=== PATIENT | female | born 1965 | race Caucasian/White ===

== ENCOUNTER 2016-10-28 18:24 | Emergency (ER) | payer OTHER ==
[2016-10-28] MEDS ORDERED: ASPIRIN PO STA (18:29)
[2016-10-28] MEDS ORDERED: NITROGLYCERIN SL PRN (18:29)
[2016-10-28] MEDS ORDERED: NITROGLYCERIN TOP ONE (18:40)
[2016-10-28] MEDS ORDERED: PRINIVIL PO ONE (18:40)
[2016-10-28 18:52] LABS: MANUAL DIFF NEEDED? NO
[2016-10-28 18:54] LABS: BASO% 0.5 % (0.0-0.8); EOS# 0.17 X1000 (0.0-0.7); EOS% 1.7 % (0.0-10.0); HEMATOCRIT 39.9 % (37.0-47.0); HEMOGLOBIN 13.5 g/dL (12.0-16.0); IMM GRAN# 0.02 X1000 (0.0-0.04); IMM GRAN% 0.2 % (0.0-0.5); LYMPH# 3.94 X1000 (1.2-3.4); LYMPH% 40.3 % (20.5-51.1); MCH 30.8 PG (27-31); MCHC 33.8 g/dL (33-37); MCV 91.1 FL (81-99); MONO# 0.65 X1000 (0.11-0.59); MONO% 6.7 % (1.7-9.3); MPV 10.9 FL (7.4-10.4); NEUT% 50.6 % (42.2-75.2); PLT 238 X1000 (130-400); RBC 4.38 XMIL (4.2-5.4)
--- NOTE | 2016-10-28 19:00 | PROVIDER DOCUMENTATION ---
HPI-Chest Pain - General Chief Complaint: Chest Pain Stated Complaint: CP Time Seen by Provider: 10/28/16 18:38 Source: patient Allergies/Adverse Reactions: Patient Allergies Allergy/AdvReac Type Severity Reaction Status Date / Time ibuprofen AdvReac Unknown Verified 10/28/16 19:04 Home Medications: Clonazepam [Klonopin] 1 mg PO BID 10/28/16 Hydrocodone/APAP 10 mg/325 mg [Medora-10] 1 tab PO BID 10/28/16 Nebivolol HCl [Bystolic] 10 mg PO BID 10/28/16 Oxymorphone HCl [Opana ER] 40 mg PO BID 10/28/16 Ranitidine [Zantac] 150 mg PO BID 10/28/16 - History of Present Illness-CP Nature of Presenting Problem: Pt is a 51 yof who presents to ER with CC of C/P that has been intermittent since yesterday. Pt reports that yesterday, her pain started as a sharp sensation in her LUQ and was so painful that pt reports "it took me to the ground." Pt reports that today, her C/P is more of a sore feeling in her central sternum. Pt has hx of angina and HTN. On exam, pt has severe central sternal pain on palpation. Pt reports hx of chronic pain from prior incident, and also reports that she has run out of her Klonopins, her PCP cut back her prescription due to pt taking multiple pain pills. Pt reports that she has received a prescription from her PCP, but wont be able to fill it until tomorrow. Location: reports: central Chest Pain Radiation: reports: no radiation Quality of Pain: reports: sharp, other (sore) Severity in ED: moderate Onset/Duration: other (Yesterday) Timing: still present, intermittent Context/Activities at Onset: reports: light activity Modifying Factors: worse with: exercise, palpation Associated Symptoms: denies: heartburn, nausea, shortness of breath, vomiting, weakness Nitro Today/Relief: no nitro taken today Review of Systems - Adult - REVIEW OF SYSTEMS - ADULT Constitutional: denies: chills, fever, fatique Eyes: reports: no symptoms reported Ears, Nose, Mouth & Throat: reports: no symptoms reported Cardiovascular: reports: chest pain. denies: edema, irregular heart rate, palpitations, poor circulation, syncope Respiratory: denies: dyspnea on exertion, pleurisy, shortness of breath, wheezing Gastrointestinal: reports: no symptoms reported Genitourinary: reports: no symptoms reported Musculoskeletal: reports: no symptoms reported Integumentary: reports: no symptoms reported Neurological: reports: no symptoms reported Psychiatric: reports: no symptoms reported Endocrine: reports: no symptoms reported Hematologic/Lymphatic: reports: no symptoms reported Allergic/Immunologic: reports: no symptoms reported All Other Systems: Reviewed and Negative Past History - Adult - PAST MEDICAL HISTORY-ADULT Review of Records: reports: Nursing Assessment Review, Medications Reviewed Cardiovascular: reports: angina, HTN - IMMUNIZATION STATUS Childhood Immunizations: See Nurse Assessment Flu Vaccine: See Nurse Assessment - SOCIAL HISTORY Smoking: cigarettes, less than 1 pack/day Provider spent 3-5 mins advising pt. on dangers of tobacco.: Discussed manners to quit use, and f/u contacts for add'l counseling. Physical Exam-General - PHYSICAL EXAM-ADULT Initial Vital Signs Reviewed: Yes - CONSTITUTIONAL General Appearance: appears well, alert, moderate distress - NECK Neck: non-tender, full range of motion, supple - RESPIRATORY Respiratory: lungs clear, normal breath sounds, other (Central sternum moderately tender on palpation) - CARDIOVASCULAR Cardiovascular: normal peripheral pulses, regular rate, rhythm - GASTROINTESTINAL (ABDOMEN) Abdominal Exam: normal bowel sounds, non tender, soft - LYMPHATIC Lymphatic: no adenopathy - MUSCULOSKELETAL Back Exam: no CVA tenderness, no vertebral tenderness Extremity: normal range of motion, non-tender, normal gait - SKIN Integumentary: normal color, normal turgor, warm/dry - NEUROLOGIC Neurologic: grossly normal, no motor/sensory deficits - PSYCHIATRIC Psych/Mental Status: normal thought content, normal thought process, oriented x 3, anxious Progress - PLAN OF CARE/RESULTS Progress/Plan/Lab Results: Vital Signs - 24 hr 10/28/16 18:26 Temperature 97.8 F Pulse Rate 72 Respiratory 22 Rate Blood Pressure 186/113 O2 Sat by Pulse 100 Oximetry Orders Category Date Time Status Cardiac Monitoring DIRECTED Care 10/28/16 18:29 Active Saline Loc NOW Care 10/28/16 18:29 Active CHEST-2 VIEWS [RAD] Stat Exams 10/28/16 18:29 Taken CBC WITH ELECTRONIC DIFF [HEME] Stat Lab 10/28/16 18:36 Completed CK PROFILE [SP CHEM] Stat Lab 10/28/16 18:36 Completed COMPREHENSIVE METABOLIC PANEL [CHEM] Stat Lab 10/28/16 18:36 Completed D-DIMER [CHEM] Stat Lab 10/28/16 18:36 Completed MAGNESIUM [CHEM] Stat Lab 10/28/16 18:36 Completed PRO B-NATRIURETIC PEPTIDE Stat Lab 10/28/16 18:36 Completed PROTIME WITH INR [COAG] Stat Lab 10/28/16 18:36 Completed PTT [COAG] Stat Lab 10/28/16 18:36 Completed TROPONIN T Stat Lab 10/28/16 18:36 Completed Aspirin Med 10/28/16 18:29 Discontinued 325 mg PO STAT STA Clonazepam [Klonopin] Med 10/28/16 19:08 Discontinued 1 mg PO NOW ONE Ketorolac [Toradol] Med 10/28/16 19:09 Discontinued 30 mg IV NOW ONE Ketorolac [Toradol] Med 10/28/16 19:24 Discontinued 60 mg IM NOW ONE LISINOpril [Prinivil] Med 10/28/16 18:40 Discontinued 20 mg PO NOW ONE Nitroglycerin Med 10/28/16 18:40 Discontinued 1 inch TOP NOW ONE Nitroglycerin Sl [Nitroglycerin] Med 10/28/16 18:29 Active 0.4 mg SL Q5M PRN PRN EKG [EKG] Stat Ther 10/28/16 18:29 Ordered Laboratory Tests 10/28/16 10/28/16 10/28/16 18:36 18:36 18:36 WBC 9.77 RBC 4.38 Hgb 13.5 Hct 39.9 MCV 91.1 MCH 30.8 MCHC 33.8 RDW Std Deviation 13.4 Plt Count 238 MPV 10.9 H Immature Gran % (Auto) 0.2 Neut % (Auto) 50.6 Lymph % (Auto) 40.3 [place] % (Auto) 6.7 Eos % (Auto) 1.7 Baso % (Auto) 0.5 Immature Gran # (Auto) 0.02 Neut # (Auto) 4.94 Lymph # (Auto) 3.94 H [place] # (Auto) 0.65 H Eos # (Auto) 0.17 Baso # (Auto) 0.05 PT INR PTT (Actin FS) D-Dimer 0.29 Sodium 128 L Potassium 3.5 Chloride 90 L Carbon Dioxide 21 L Anion Gap 17 BUN 6 L Creatinine 0.9 Estimated GFR/1.73 m2 > 60 BUN/Creatinine Ratio 7 Glucose 119 H Calculated Osmolality 256 Calcium 9.5 Magnesium 1.8 Total Bilirubin 0.37 AST 12 ALT 8 L Alkaline Phosphatase 71 Creatine Kinase 132 Troponin T [id number] Pept Total Protein 8.1 Albumin 4.7 Globulin 3.4 Albumin/Globulin Ratio 1.4 10/28/16 10/28/16 10/28/16 18:36 18:36 18:36 WBC RBC Hgb Hct MCV MCH MCHC RDW Std Deviation Plt Count MPV Immature Gran % (Auto) Neut % (Auto) Lymph % (Auto) [place] % (Auto) Eos % (Auto) Baso % (Auto) Immature Gran # (Auto) Neut # (Auto) Lymph # (Auto) [place] # (Auto) Eos # (Auto) Baso # (Auto) PT 11.6 INR 1.09 PTT (Actin FS) 26.7 D-Dimer Sodium Potassium Chloride Carbon Dioxide Anion Gap BUN Creatinine Estimated GFR/1.73 m2 BUN/Creatinine Ratio Glucose Calculated Osmolality Calcium Magnesium Total Bilirubin AST ALT Alkaline Phosphatase Creatine Kinase Troponin T < 0.010 [id number] Pept 194 H Total Protein Albumin Globulin Albumin/Globulin Ratio - EKG 1 Time of EKG reading by physician:: 18:31 EKG Read and Signed by:: Carlton Watt EKG Interpretation (*Must complete 3 of following elements*): Abnormal ( Nonspecific ST and T wave abnormality) Rate: 89 Rhythm: Sinus rhythm with short ID - XRAY 1 XRAY: Bilateral XRAY Study: Chest Impression: See EMR Report XRAY Interpretation: COPD changes, nothing acute per Dr. Watt Departure - Departure Time of Disposition Order: 20:04 DIAGNOSIS: Left-sided chest wall pain, Anxiety HTN (hypertension) Qualifiers: Hypertension type: unspecified secondary hypertension Qualified Code(s): I15.9 - Secondary hypertension, unspecified Disposition: HOME 01 Certified Medical Emergency: Emergent Condition: Stable Additional Instructions: Follow up with Dr. Keating (Microfilm Machine Operator) as soon as possible. Continue home medications ED Follow Up Instructions: You have been treated by a care provider in the Emergency Department. These instructions are being provided to you so you can have an understanding of how to care for yourself upon discharge. Upon discharge from the Emergency Department, you are responsible for making arrangements for follow-up care by a physician of your choice. Take all prescribed medications as directed. Return to the Emergency Department immediately for any new or worsening symptoms. You may call the Physician Referral phone number at [phone] to obtain a list of Physicians who are taking new patients. Referrals: None,PCP [Primary Care Provider] - River Keating MD [STAFF PHYSICIAN] - Attestation - Scribe Verification/Attestation Scribe:: Jerrell Navarro Acting as Scribe for:: Carlton Watt Scribe documention review:: This chart was documented by a scribe and accurately reflects the service the provider performed and the decisions made by the provider.
[2016-10-28 19:02] LABS: INR 1.09; PROTIME 11.6 Seconds (9.2-11.7); PTT 26.7 Seconds (22.0-36.0)
[2016-10-28] MEDS ORDERED: KLONOPIN PO ONE (19:08)
[2016-10-28] MEDS ORDERED: TORADOL IV ONE (19:09)
[2016-10-28 19:19] LABS: AGAP 17; ALBUMIN 4.7 g/dL (3.5-5.0); ALKALINE PHOSPHATASE 71 U/L (32-104); BUN 6 mg/dL (8-22); CALCIUM 9.5 mg/dL (8.8-10.2); CHLORIDE 90 mmol/L (98-107); CK PROFILE 132 U/L (24-173); COSMO 256; GOT 12 U/L (10-30); GPT 8 U/L (10-36); MAGNESIUM 1.8 mg/dL (1.5-2.7); POTASSIUM 3.5 mmol/L (3.5-5.1); SODIUM 128 mmol/L (136-145); TCO2 21 mmol/L (25-35); TOTAL BILIRUBIN 0.37 mg/dL (0.20-1.00); TOTAL PROTEIN 8.1 g/dL (6.3-8.3)
[2016-10-28] MEDS ORDERED: TORADOL IM ONE (19:24)
[2016-10-28 20:19] VITALS: BP 162/86
--- NOTE | 2016-10-29 05:30 | EKG Report ---
Test Performed on : 10/28/2016 6:31:55 PM Test Reason : Chest Pain Blood Pressure : / mmHG Vent. Rate : 089 BPM Atrial Rate : 089 BPM P-R Int : 110 ms QRS Dur : 078 ms QT Int : 374 ms P-R-T Axes : 068 051 002 degrees QTc Int : 455 ms Sinus rhythm. with short ND Nonspecific ST and T wave abnormality Abnormal ECG No previous ECGs available Unconfirmed Result
--- NOTE | 2016-10-29 06:59 | Diag Imaging Result Document ---
PROCEDURE NAME: CHEST-2 VIEWS - 10/28/2016 FRONTAL AND LATERAL CHEST, TWO VIEWS: FINDINGS: The lungs are hyperexpanded. The heart is not enlarged. The pulmonary vessels are small. No pneumonia. No pleural effusions. No free air beneath the diaphragm. IMPRESSION: The lungs are hyperexpanded, but otherwise no acute abnormality.
== END 2016-10-28 20:25 | disposition home or self-care (01) ==
LOC: ED 18:24
DX: R07.89 Other chest pain (principal); I15.9 Secondary hypertension, unspecified; F41.9 Anxiety disorder, unspecified; R94.31 Abnormal electrocardiogram [ECG] [EKG]; I10 Essential (primary) hypertension; F17.210 Nicotine dependence, cigarettes, uncomplicated; Z71.6 Tobacco abuse counseling; Z79.899 Other long term (current) drug therapy
CPT/HCPCS: 71020; 80053; 82550; 83735; 83880; 84484; 85025; 85379; 85610; 85730; 93005; 96372; J1885